=== PATIENT | female | born 1975 | race Caucasian/White ===

== ENCOUNTER → 2019-04-13 16:12 | Outpatient (CLI) | payer BC ==
[2010-05-18 17:33] VITALS: BMI 27.5
[2019-04-13 16:28] LABS: BASOPHILS 0.2 % (0-2); EOSINOPHILS 1.2 % (0-7); HEMATOCRIT 40.4 % (36.0-48.0); HEMOGLOBIN 13.1 g/dL (12-16); IMMATURE GRANULOCYTES 0.3 % (0-5); LYMPHOCYTES 29.8 % (15-50); MCH 31.1 pg (26.0-34.0); MCHC 32.4 g/dL (31.0-37.0); MEAN PLATELET VOLUME 9.4 fL (7.4-10.4); MONOCYTES 6.9 % (2-11); NEUTROPHILS 61.6 % (40-80); PLATELET COUNT 288 10x3/uL (130-400); RBC 4.21 10x6/uL (4.00-5.40); RDW 13.4 % (11.5-14.5); WBC 8.9 10x3/uL (4.8-10.8)
== END | disposition home or self-care (01) ==
LOC: D.LAB 16:12
PROVIDERS: ATTEND Internal Medicine Gastroenterology
DX: K51.90 Ulcerative colitis, unspecified, without complications (principal); Z79.899 Other long term (current) drug therapy

== ENCOUNTER → 2019-05-04 16:31 | Outpatient (CLI) | payer BC ==
[2010-05-18 17:33] VITALS: BMI 27.5
[2019-05-04 16:43] LABS: BASOPHILS 0.2 % (0-2); EOSINOPHILS 0.4 % (0-7); HEMATOCRIT 40.5 % (36.0-48.0); IMMATURE GRANULOCYTES 0.3 % (0-5); LYMPHOCYTES 25.5 % (15-50); MCH 31.1 pg (26.0-34.0); MCHC 32.1 g/dL (31.0-37.0); MCV 96.9 fL (80.0-100.0); MEAN PLATELET VOLUME 9.4 fL (7.4-10.4); MONOCYTES 5.8 % (2-11); NEUTROPHILS 67.8 % (40-80); PLATELET COUNT 264 10x3/uL (130-400); RBC 4.18 10x6/uL (4.00-5.40); RDW 13.4 % (11.5-14.5)
== END | disposition home or self-care (01) ==
LOC: D.LAB 16:20
PROVIDERS: ATTEND Internal Medicine Gastroenterology
DX: K51.90 Ulcerative colitis, unspecified, without complications (principal); Z79.899 Other long term (current) drug therapy

== ENCOUNTER → 2019-06-02 16:32 | Outpatient (CLI) | payer BC ==
[2010-05-18 17:33] VITALS: BMI 27.5
[2019-06-02 16:48] LABS: BASOPHILS 0.2 % (0-2); EOSINOPHILS 0.1 % (0-7); HEMATOCRIT 41.5 % (36.0-48.0); HEMOGLOBIN 13.7 g/dL (12-16); IMMATURE GRANULOCYTES 0.2 % (0-5); LYMPHOCYTES 23.8 % (15-50); MCH 31.3 pg (26.0-34.0); MCV 94.7 fL (80.0-100.0); MEAN PLATELET VOLUME 9.2 fL (7.4-10.4); MONOCYTES 4.4 % (2-11); NEUTROPHILS 71.3 % (40-80); PLATELET COUNT 278 10x3/uL (130-400); RBC 4.38 10x6/uL (4.00-5.40); RDW 13.6 % (11.5-14.5); WBC 10.9 10x3/uL (4.8-10.8)
== END | disposition home or self-care (01) ==
LOC: D.LAB 16:32
PROVIDERS: ATTEND Internal Medicine Gastroenterology
DX: K51.90 Ulcerative colitis, unspecified, without complications (principal); Z79.899 Other long term (current) drug therapy

== ENCOUNTER → 2019-07-06 16:17 | Outpatient (CLI) | payer BC ==
[2010-05-18 17:33] VITALS: BMI 27.5
[2019-07-06 16:40] LABS: BASOPHILS 0.1 % (0-2); EOSINOPHILS 0.2 % (0-7); HEMATOCRIT 40.4 % (36.0-48.0); HEMOGLOBIN 13.6 g/dL (12-16); IMMATURE GRANULOCYTES 0.2 % (0-5); LYMPHOCYTES 24.2 % (15-50); MCH 31.5 pg (26.0-34.0); MCHC 33.7 g/dL (31.0-37.0); MCV 93.5 fL (80.0-100.0); MEAN PLATELET VOLUME 9.2 fL (7.4-10.4); MONOCYTES 5.2 % (2-11); NEUTROPHILS 70.1 % (40-80); PLATELET COUNT 268 10x3/uL (130-400); RBC 4.32 10x6/uL (4.00-5.40); RDW 13.4 % (11.5-14.5); WBC 9.4 10x3/uL (4.8-10.8)
== END | disposition home or self-care (01) ==
LOC: D.LAB 16:17
PROVIDERS: ATTEND Internal Medicine Gastroenterology
DX: K51.90 Ulcerative colitis, unspecified, without complications (principal); Z79.899 Other long term (current) drug therapy

== ENCOUNTER → 2019-08-04 16:09 | Outpatient (CLI) | payer BC ==
[2010-05-18 17:33] VITALS: BMI 27.5
[2019-08-04 16:26] LABS: BASOPHILS 0.2 % (0-2); EOSINOPHILS 0.4 % (0-7); HEMATOCRIT 39.1 % (36.0-48.0); HEMOGLOBIN 13.1 g/dL (12-16); IMMATURE GRANULOCYTES 0.3 % (0-5); LYMPHOCYTES 29.6 % (15-50); MCH 30.9 pg (26.0-34.0); MCHC 33.5 g/dL (31.0-37.0); MCV 92.2 fL (80.0-100.0); MONOCYTES 7.1 % (2-11); NEUTROPHILS 62.4 % (40-80); PLATELET COUNT 282 10x3/uL (130-400); RBC 4.24 10x6/uL (4.00-5.40); WBC 9.7 10x3/uL (4.8-10.8)
== END | disposition home or self-care (01) ==
LOC: D.LAB 16:09
PROVIDERS: ATTEND Internal Medicine Gastroenterology
DX: K51.90 Ulcerative colitis, unspecified, without complications (principal); Z79.899 Other long term (current) drug therapy

== ENCOUNTER → 2019-10-14 12:14 | Outpatient (CLI) | payer BC ==
[2010-05-18 17:33] VITALS: BMI 27.5
[2019-10-14 12:40] LABS: BASOPHILS 0.2 % (0-2); EOSINOPHILS 0.5 % (0-7); HEMATOCRIT 41.1 % (36.0-48.0); HEMOGLOBIN 13.2 g/dL (12-16); IMMATURE GRANULOCYTES 0.2 % (0-5); MCH 30.2 pg (26.0-34.0); MCHC 32.1 g/dL (31.0-37.0); MCV 94.1 fL (80.0-100.0); MEAN PLATELET VOLUME 9.2 fL (7.4-10.4); MONOCYTES 6.1 % (2-11); PLATELET COUNT 270 10x3/uL (130-400); RBC 4.37 10x6/uL (4.00-5.40); RDW 13.9 % (11.5-14.5); WBC 8.6 10x3/uL (4.8-10.8)
== END | disposition home or self-care (01) ==
LOC: D.LAB 12:14
PROVIDERS: ATTEND Internal Medicine Gastroenterology
DX: K51.90 Ulcerative colitis, unspecified, without complications (principal); Z79.899 Other long term (current) drug therapy

== ENCOUNTER → 2019-11-03 16:10 | Outpatient (CLI) | payer BC ==
[2010-05-18 17:33] VITALS: BMI 27.5
[2019-11-03 16:34] LABS: BASOPHILS 0.3 % (0-2); EOSINOPHILS 0.5 % (0-7); HEMATOCRIT 41.7 % (36.0-48.0); HEMOGLOBIN 13.3 g/dL (12-16); IMMATURE GRANULOCYTES 0.1 % (0-5); LYMPHOCYTES 29.5 % (15-50); MCHC 31.9 g/dL (31.0-37.0); MCV 93.9 fL (80.0-100.0); MONOCYTES 6.7 % (2-11); NEUTROPHILS 62.9 % (40-80); PLATELET COUNT 278 10x3/uL (130-400); RBC 4.44 10x6/uL (4.00-5.40); RDW 13.7 % (11.5-14.5); WBC 7.4 10x3/uL (4.8-10.8)
== END | disposition home or self-care (01) ==
LOC: D.LAB 16:10
PROVIDERS: ATTEND Internal Medicine Gastroenterology
DX: K51.90 Ulcerative colitis, unspecified, without complications (principal); Z79.899 Other long term (current) drug therapy

== ENCOUNTER → 2019-12-27 12:03 | Outpatient (CLI) | payer BC ==
[2010-05-18 17:33] VITALS: BMI 27.5
[2019-12-27 12:29] LABS: HEMATOCRIT 41.8 % (36.0-48.0); HEMOGLOBIN 13.7 g/dL (12-16); LYMPHOCYTES 21.2 % (15-50); MCH 30.5 pg (26.0-34.0); MCHC 32.8 g/dL (31.0-37.0); MCV 93.1 fL (80.0-100.0); NEUTROPHILS 73.3 % (40-80); PLATELET COUNT 285 10x3/uL (130-400); RBC 4.49 10x6/uL (4.00-5.40); RDW 13.4 % (11.5-14.5); WBC 9.2 10x3/uL (4.8-10.8)
== END | disposition home or self-care (01) ==
LOC: D.LAB 12:03
PROVIDERS: ATTEND Internal Medicine Gastroenterology
DX: K51.90 Ulcerative colitis, unspecified, without complications (principal); Z79.899 Other long term (current) drug therapy

== ENCOUNTER → 2020-02-14 16:20 | Outpatient (CLI) | payer BC ==
[2010-05-18 17:33] VITALS: BMI 27.5
[2020-02-14 16:55] LABS: BASOPHILS 0.1 % (0-2); EOSINOPHILS 0.3 % (0-7); HEMATOCRIT 39.5 % (36.0-48.0); HEMOGLOBIN 12.8 g/dL (12-16); IMMATURE GRANULOCYTES 0.5 % (0-5); LYMPHOCYTES 23.6 % (15-50); MCH 30.8 pg (26.0-34.0); MCHC 32.4 g/dL (31.0-37.0); MEAN PLATELET VOLUME 9.2 fL (7.4-10.4); MONOCYTES 3.8 % (2-11); NEUTROPHILS 71.7 % (40-80); RBC 4.16 10x6/uL (4.00-5.40); RDW 14.1 % (11.5-14.5); WBC 8.8 10x3/uL (4.8-10.8)
[2020-02-14 17:43] LABS: PLATELET COUNT 350 10x3/uL (130-400)
== END | disposition home or self-care (01) ==
LOC: D.LAB 16:20
PROVIDERS: ATTEND Internal Medicine Gastroenterology
DX: K51.20 Ulcerative (chronic) proctitis without complications (principal)

== ENCOUNTER → 2020-03-14 16:17 | Outpatient (CLI) | payer BC ==
[2010-05-18 17:33] VITALS: BMI 27.5
[2020-03-14 16:34] LABS: BASOPHILS 0.3 % (0-2); EOSINOPHILS 0.8 % (0-7); HEMOGLOBIN 12.3 g/dL (12-16); IMMATURE GRANULOCYTES 0.1 % (0-5); LYMPHOCYTES 26.5 % (15-50); MCH 31.1 pg (26.0-34.0); MCHC 31.5 g/dL (31.0-37.0); MCV 98.5 fL (80.0-100.0); MEAN PLATELET VOLUME 9.1 fL (7.4-10.4); MONOCYTES 5.8 % (2-11); NEUTROPHILS 66.5 % (40-80); PLATELET COUNT 289 10x3/uL (130-400); RBC 3.96 10x6/uL (4.00-5.40); RDW 14.1 % (11.5-14.5)
== END | disposition home or self-care (01) ==
LOC: D.LAB 16:17
PROVIDERS: ATTEND Internal Medicine Gastroenterology
DX: K51.20 Ulcerative (chronic) proctitis without complications (principal)

== ENCOUNTER → 2020-08-10 11:05 | Outpatient (CLI) | payer BC ==
[2010-05-18 17:33] VITALS: BMI 27.5
[2020-08-10 13:42] LABS: HEMATOCRIT 39.4 % (36.0-48.0); HEMOGLOBIN 13.1 g/dL (12-16); MCH 31.3 pg (26.0-34.0); MCHC 33.2 g/dL (31.0-37.0); MCV 94.3 fL (80.0-100.0); MEAN PLATELET VOLUME 9.8 fL (7.4-10.4); NEUTROPHILS 72.2 % (40-80); PLATELET COUNT 272 10x3/uL (130-400); RBC 4.18 10x6/uL (4.00-5.40); RDW 13.6 % (11.5-14.5); WBC 6.5 10x3/uL (4.8-10.8)
== END | disposition home or self-care (01) ==
LOC: D.LAB 11:05
PROVIDERS: ATTEND Internal Medicine Gastroenterology
DX: K51.20 Ulcerative (chronic) proctitis without complications (principal)